=== PATIENT | male | born 1950 | race Caucasian/White ===

== ENCOUNTER 2021-12-11 08:00 | Outpatient (CLI) | payer MEDICARE, OTHER ==
--- NOTE | 2021-12-12 09:48 | XRAY Report ---
PROCEDURE: Finger(s) LT INDICATIONS: LACERATION OF LEFT LITTLE FINGER TECHNIQUE: AP hand, 2 views of the fifth finger(s) acquired. COMPARISON: None FINDINGS: Bones: Comminuted and minimally displaced fracture through fifth distal phalangeal tuft is seen. No o ther fracture or dislocation. 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 No suspicious bony lesions. Soft tissues: Soft tissue defect over tip of fifth digit is seen. No radiopaque foreign body is noted . IMPRESSION: Laceration involving distal portion of finger with comminuted and minimally displaced fracture involv ing fifth distal phalangeal tuft. Reviewed by: Olayinka Koehler MD on 12/12/2021 9:47 AM PDT Approved by: Olayinka Koehler MD on 12/12/2021 9:47 AM PDT Station ID: [id number]
== END 2021-12-11 23:59 | disposition home or self-care (01) ==
LOC: DI.S 08:00
PROVIDERS: ATTEND Emergency Medicine
DX: S62.637B Displaced fracture of distal phalanx of left little finger, initial encounter for open fracture (principal)